=== PATIENT | female | born 1995 | race Caucasian/White ===

== ENCOUNTER 2021-01-23 09:12 | Emergency (ER) | payer OTHER ==
[~2021-01-23] VITALS: Ht 160 cm; Wt 99.8 kg
[2021-01-23] MEDS ORDERED: METFORMIN HCL1000 MG PO (09:28)
[2021-01-23] MEDS ORDERED: CELEBREX100 MG PO ×2 (10:26→10:33)
== END 2021-01-23 10:46 | disposition home or self-care (01) ==
LOC: ER 09:12
DX: R07.89 Other chest pain (principal)

== ENCOUNTER 2021-04-10 04:03 | Emergency (ER) | payer OTHER ==
[~2021-04-10] VITALS: Ht 160 cm; Wt 97.5 kg
[~2021-04-10 04:03] MED LIST: CELEBREX100 MG PO; METFORMIN HCL1000 MG PO
[2021-04-10] MEDS ORDERED: OSEL75CA PO (06:54)
[2021-04-10] MEDS ORDERED: PROVENTIL HFA6.7 GM IH (06:54)
[2021-04-10] MEDS ORDERED: PHENAGIL TABLE1 EACH PO (06:54)
[2021-04-10] MEDS ORDERED: ZYNCOF 20-400120 ML PO (06:54)
== END 2021-04-10 08:01 ==
LOC: ER 04:03
DX: J10.1 Influenza due to other identified influenza virus with other respiratory manifestations (principal); R50.9 Fever, unspecified; Z20.822 Contact with and (suspected) exposure to COVID-19

== ENCOUNTER 2022-04-19 02:35 | Emergency (ER) | payer OTHER ==
[~2022-04-19] VITALS: Ht 160 cm; Wt 113.4 kg
[~2022-04-19 02:35] MED LIST changes: +OSEL75CA PO; +PHENAGIL TABLE1 EACH PO; +PROVENTIL HFA6.7 GM IH; +ZYNCOF 20-400120 ML PO
[2022-04-19] MEDS ORDERED: METFORMIN HCL500 M3 PO (02:45)
== END 2022-04-19 06:54 | disposition home or self-care (01) ==
LOC: ER 02:35
DX: B34.9 Viral infection, unspecified (principal); Z20.822 Contact with and (suspected) exposure to COVID-19; E11.9 Type 2 diabetes mellitus without complications; Z79.84 Long term (current) use of oral hypoglycemic drugs; Z88.0 Allergy status to penicillin